=== PATIENT | female | born 1960 | race Caucasian/White ===

== ENCOUNTER 2016-09-01 12:30 | Inpatient (IN) | payer OTHER ==
[2016-08-31 14:10] VITALS: BMI 30.7
[~2016-09-01] VITALS: Ht 180.3 cm; Wt 109.3 kg
[2016-09-13 14:47] VITALS: BMI 31.7
[2016-09-14] VITALS (19 sets, daily range): BP systolic 109–135; BP diastolic 56–82; PULSE 60–86; RESP 12–28; Ht 180.3 cm; Wt 109.3 kg
--- NOTE | 2016-09-14 02:00 | PREOPHP ---
DATE OF ADMISSION: 09/01/2016 HISTORY OF PRESENT ILLNESS: Patient is approximately 55-year-old female who was originally seen for evaluation of low back pain with pain going through her lower extremities, mostly on the right side , but some on the left. She stated that her entire right leg felt numb. Patient was diagnosed with lumbar 4, lumbar 5 right disk herniation with mechanical low back pain, as well as instability betw een lumbar 4 and lumbar 5. Conservative management was offered to the patient in the form of physic al therapy, which did not improve patient's condition. Pain management did not improve, patient con tinued to complain of back pain with radiation to the lower extremities. Epidural injections were o ffered to the patient of the lumbar spine, which did not improve, patient wants something more defin itive to be done. According to the patient, the pain is getting worse and was having difficulty wit h ambulation. There is no bladder or bowel dysfunction. PAST MEDICAL HISTORY: Per chart. PAST SURGICAL HISTORY: Per chart. SOCIAL HISTORY: Per chart. ALLERGIES: PER CHART. MEDICATIONS TAKEN AT HOME: Per chart. FAMILY HISTORY: Unremarkable. REVIEW OF SYSTEMS: Additional 10-point review of systems conducted, pertinent positives stated in t he HPI, otherwise negative. PHYSICAL EXAMINATION: GENERAL: The patient is awake, alert and oriented, follows commands appropriately. HEENT: Head is atraumatic, normocephalic. Sclerae anicteric. EOMs intact. Pupils equal, reactive . bleeding. NECK: Supple. No thyromegaly. No JVD. CHEST: No accessory muscle use dyspnea, no tachypnea. CARDIOVASCULAR: No JVD, no pedal edema. ABDOMEN: Soft. NEUROLOGIC: Equal strength in upper extremities. Deltoids, biceps, triceps, wrist extensors, flexi on, as well as hand intrinsic and extrinsic muscles. Strength is equal. Sensation is intact throug hout lower extremity examination. Difficulty with sensation in the right lower extremity compared t o the left. Left thigh, patient has slowed sensation. Strength is about 4/5 in the right lower ext remity compared to 5/5 on the left one. Range of motion of the hips, knees and ankles is intact. IMAGING FINDINGS: MRI dated 07/28/2016 showed right-sided L4-5 disk herniation, severe degenerative disk disease and with end-plate abnormality. Patient also has evidence of instability between L4 a nd L5, and the facet joints are open as well. IMPRESSION: Patient shows clear evidence of a right-sided L4-5 disk herniation with severe degenera tive disk disease with end-plate abnormality, as well as instability between L4 and L5, as well as i nstability in the facet joints. Patient, unfortunately, has failed conservative management. RECOMMENDATION: Is for patient to undergo surgical intervention in the form of lumbar 4, lumbar 5 l aminectomy with interbody fusion and instrumentation with posterolateral pedicle screw instrumentati on. Unfortunately, patient has failed outpatient management, has failed the conservative management . The only option at this point is for surgical intervention. Surgical intervention was discussed with the patient. Patient has been cleared by the primary physician to undergo surgical interventio n. Laboratories were reviewed. Patient is stable to undergo through surgical intervention, there a fter patient will need admission to the hospital for further care and management. Dictated By: ELIANA ROBERTS/TEZ Conf#: [id number] DID#: [id number]
[2016-09-14] MEDS ORDERED: MELO7.5O PO (06:22)
[2016-09-14] MEDS ORDERED: ATOR20TA38 PO (06:22)
[2016-09-14] MEDS ORDERED: CHOL100062 PO (06:22)
[2016-09-14] MEDS ORDERED: ACET1TAB40 PO (06:22)
[2016-09-14] MEDS ORDERED: PREM3 PO (06:22)
[2016-09-14] MEDS ORDERED: GABA300C16 PO (06:22)
[2016-09-14] MEDS ORDERED: PROPOFOL 20 ML ONE (06:28)
[2016-09-14] MEDS ORDERED: GLYCOPYRROLATE 0.4 MG INJ ONE (06:28)
[2016-09-14] MEDS ORDERED: FENTAnyl 50 MCG/ML VIAL ONE (06:28)
[2016-09-14] MEDS ORDERED: LIDOCAINE 2% (SDV) 5 ML INJ ONE (06:28)
[2016-09-14] MEDS ORDERED: NEOSTIGMINE 3 MG/3 ML SYRINGE ONE (06:28)
[2016-09-14] MEDS ORDERED: MIDAZOLAM 1 MG/ML 2 ML INJ ONE (06:28)
[2016-09-14] MEDS ORDERED: ROCURONIUM 50 MG INJ ONE (06:28)
[2016-09-14] MEDS ORDERED: EPHEDrine SULFATE 50 MG/5 ML SYG ONE (06:29)
[2016-09-14] MEDS ORDERED: ONDANSETRON 4 MG INJ ONE (06:29)
[2016-09-14] MEDS ORDERED: SUCCINYLCHOLINE CHLORIDE 100 MG/5 ML SYG IV ONE (06:29)
[2016-09-14] MEDS ORDERED: DEXAMETHASONE 4 MG/ML 1 ML INJ ONE (06:29)
[2016-09-14] MEDS ORDERED: OXYCODONE/ACETAMINOPHEN (5/325) TAB PO PRN ×2 (06:30)
[2016-09-14] MEDS ORDERED: morphine (1 MG/ML) 10ML SYRINGE IV PRN ×3 (06:30)
[2016-09-14] MEDS ORDERED: EPHEDrine SULFATE 50 MG/5 ML SYG IV PRN (06:30)
[2016-09-14] MEDS ORDERED: ATROPINE 1 MG/10 ML SYRINGE IV PRN (06:30)
[2016-09-14] MEDS ORDERED: HYDROmorphONE (0.2 MG/ML) 10ML SYG IV PRN (06:30)
[2016-09-14] MEDS ORDERED: hydrALAzine 20 MG INJ IV PRN (06:30)
[2016-09-14] MEDS ORDERED: MEPERIDINE 25 MG INJ IV PRN (06:30)
[2016-09-14] MEDS ORDERED: FENTAnyl 50 MCG/ML VIAL IV PRN ×2 (06:30)
[2016-09-14] MEDS ORDERED: MIDAZOLAM 1 MG/ML 2 ML INJ IV PRN (06:30)
[2016-09-14] MEDS ORDERED: ONDANSETRON 4 MG INJ IV PRN (06:30)
[2016-09-14] MEDS ORDERED: DIPHENHYDRAMINE 50 MG INJ IV PRN (06:30)
[2016-09-14] MEDS ORDERED: LABETALOL HCL 20MG INJ IV PRN (06:30)
[2016-09-14] MEDS ORDERED: GELATIN SIZE 100 SPONGE ONE (07:01)
[2016-09-14] MEDS ORDERED: LIDOCAINE 0.5%/EPI (MDV) 50 ML INJ ONE (07:01)
[2016-09-14] MEDS ORDERED: THROMBIN 5000 UNIT VIAL ONE (07:01)
[2016-09-14] MEDS ORDERED: morphine 2 MG INJ IV PRN (07:30)
[2016-09-14] MEDS ORDERED: hydrALAzine 20 MG INJ ONE (07:53)
[2016-09-14] MEDS ORDERED: BUPIVACAINE 0.25%/EPI (SDV) 30 ML INJ INJ ONE (08:00)
[2016-09-14] MEDS ORDERED: GELATIN SIZE 100 SPONGE TOP ONE (08:00)
[2016-09-14] MEDS ORDERED: THROMBIN 5000 UNIT VIAL TOP ONE ×2 (08:00)
[2016-09-14] MEDS ORDERED: POLYMYXIN/BACITRACIN 1L IRRIG IRR ONE (08:00)
[2016-09-14] MEDS ORDERED: LIDOCAINE 0.5%/EPI (MDV) 50 ML INJ INJ ONE (08:00)
[2016-09-14] MEDS ORDERED: LABETALOL HCL 20MG INJ ONE (08:47)
[2016-09-14] MEDS ORDERED: HYDROmorphONE 0.2 MG/ML PCA ONE (10:35)
[2016-09-14] MEDS: HYDROmorphONE (0.2 MG/ML) 10ML SYG IV PRN ×6 (10:37→11:19)
[2016-09-14] MEDS: HYDROmorphONE 0.2 MG/ML PCA IV SCH ×2 (10:39→17:26)
[2016-09-14] MEDS: DEXTROSE 5%-LR 1,000 ML IV SCH (11:47)
[2016-09-14] MEDS ORDERED: POLYMYXIN/BACITRACIN 1L IRRIG ONE (12:03)
[2016-09-14 12:36] LABS: ADD UMIC YES; URINE BILIRUBIN (Dip) NEGATIVE (NEGATIVE); URINE BLOOD (Dip) 3+ (NEGATIVE); URINE COLOR LT. YELLOW (YELLOW); URINE GLUCOSE (Dip) NEGATIVE (NEGATIVE); URINE KETONES (Dip) NEGATIVE (NEGATIVE); URINE LEUKOCYTE ESTERASE (Dip) NEGATIVE (NEGATIVE); URINE NITRITE (Dip) NEGATIVE (NEGATIVE); URINE TOTAL PROTEIN (Dip) TRACE (NEGATIVE); URINE UROBILINOGEN (Dip) 0.2 E.U./dL (0.1-1.0)
[2016-09-14 12:49] LABS: BACTERIA,URINE FEW; SQUAMOUS EPITHELIAL CELL,UR FEW
[2016-09-14] MEDS: CEFAZOLIN 1 GM/50 ML (PMX) 50 ML IVPB SCH ×2 (13:34→21:35)
--- NOTE | 2016-09-14 14:16 | RADRPT ---
PROCEDURE: Intraoperative fluoroscopy. CLINICAL INDICATION: Intraoperative fluoroscopy during lumbar fusion. TECHNIQUE: 4 spot intraoperative fluoroscopic images were provided. The images were reviewed on a high-resolution PACS workstation. COMPARISON: None available FINDINGS: Multiple spot intraoperative fluoroscopic views were provided during lumbar fusion. The images demo nstrate additional metallic probe at the L4-5 level, with subsequent placement of paired pedicle scr ews and disc-spacer at L4-5.. The total fluoroscopy time was 26.2 seconds. IMPRESSION: 1. Multiple spot intraoperative fluoroscopic views during lumbar fusion were provided. 2. Please see operative report of the same day for further information. RPTAT: HGAS .Con Mccoy MD, Date Time Electronically viewed and signed by .Con Mccoy MD, MD on 09/14/2016 14:15 .S/
--- NOTE | 2016-09-14 16:57 | HP ---
DATE OF ADMISSION: 09/14/2016 CHIEF COMPLAINT: Lower back pain. 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 The patient also report ed mild right leg numbness. The patient underwent MRI back in 07/2016 which revealed right-sided L4 -L5 disk herniation, severe degenerative disk disease with end plate abnormality. The patient was s een by Dr. Mohr as an outpatient. The patient was brought in to hospital today and underwent L4- L5 laminectomy. The patient prior to surgery was treated with outpatient conservative treatment. T he patient postoperatively had significant pain and is being admitted for further evaluation and man agement. The patient denies any chest pain, no reported shortness of breath, no history of hyperten storm, diabetes or CHF. No history of CVA. No reported abdominal pain. No reported recent fever or chills. No reported urinary or bowel incontinence prior to surgery. The patient was able to ambul ate without any assistance prior to surgery. PAST MEDICAL HISTORY: As stated above. PAST SURGICAL HISTORY: The patient is status post left total knee replacement, left hip replacement and right hip replacement x2 and subsequently underwent 2 revision surgeries. ALLERGIES: NONE. SOCIAL HISTORY: Ex-smoker, quit back in June 2016. FAMILY HISTORY: Noncontributory. PHYSICAL EXAMINATION: GENERAL: The patient is conscious, awake, alert, fairly oriented. VITAL SIGNS: Temperature 97.5, pulse 60, respirations 16, blood pressure 115/63, O2 saturation 98% on nasal cannula. HEENT: Conjunctivae and lids normal. Oropharynx clear. NECK: Supple. No mass, no thyromegaly. CHEST: Fairly clear. CARDIOVASCULAR: S1, S2 normal, no murmur. ABDOMEN: Soft, nondistended, nontender. EXTREMITIES: No leg edema. Pedal pulses palpable. SKIN: Without acute rash. NEUROLOGIC: The patient is awake, alert, fairly oriented. Detailed neurological examination was no t possible due to patient's recent surgery. LABORATORY DATA: Revealed WBC 9.2, hemoglobin 13.6, platelet 371. Sodium 139, potassium 4.6, BUN 1 6, creatinine 0.6. Liver enzymes normal. Coagulation profile normal. EKG revealed normal sinus rh ythm, no ST and T changes. Chest x-ray unremarkable. IMPRESSION: 1. Right sided L4-L5 disk herniation with severe degenerative disk disease status post L4-L5 dieudonne ctomy. 2. Dyslipidemia. PLAN: The patient admitted on medical floor after surgery. Patient will be given IV fluids and IV cefazolin as per protocol. Patient will be also given Tylenol, Percocet and IV morphine for pain co ntrol, depending upon the severity. Will resume Lipitor, gabapentin and Prempro. Further recommend ations will depend on the patient's hospital course. Dictated By: ANGELIA MCHUGH/TEZ Conf#: [id number] DID#: [id number]
[2016-09-14] MEDS: ONDANSETRON 4 MG INJ IV PRN (20:09)
[2016-09-14] MEDS: ATORVASTATIN 20 MG TAB PO SCH (20:09)
[2016-09-14] MEDS: GABAPENTIN 300 MG CAP PO SCH (20:09)
[2016-09-14] MEDS ORDERED: ZOLPIDEM 5 MG TAB PO PRN (21:30)
[2016-09-15] MEDS: DEXTROSE 5%-LR 1,000 ML IV SCH ×2 (00:40→05:11)
[2016-09-15 04:43] LABS: ADD SCAN DIFF NO
[2016-09-15 04:52] LABS: BASOPHILS % 0.2 % (0.0-2.0); HEMATOCRIT 31.9 % (37.0-47.0); HEMOGLOBIN 10.5 g/dl (12.0-16.0); LYMPHOCYTES # 1.4 10^3/ul (0.8-2.9); LYMPHOCYTES % 11.3 % (15.0-51.0); MEAN CORPUSCULAR HEMOGLOBIN 29.7 pg (29.0-33.0); MEAN CORPUSCULAR HGB CONC 32.9 g/dl (32.0-37.0); MEAN CORPUSCULAR VOLUME 90.1 fl (82.0-101.0); MEAN PLATELET VOLUME 9.4 fl (7.4-10.4); MONOCYTE # 0.6 10^3/ul (0.3-0.9); MONOCYTES % 4.6 % (0.0-11.0); NEUTROPHIL # 10.1 10^3/ul (1.6-7.5); NEUTROPHILS % 83.4 % (39.0-77.0); PLATELET COUNT 305 10^3/UL (140-415); RED BLOOD COUNT 3.54 10^6/ul (4.20-5.40); RED CELL DISTRIBUTION WIDTH 13.4 % (11.5-14.5); WHITE BLOOD COUNT 12.1 10^3/ul (4.8-10.8)
[2016-09-15] MEDS: CEFAZOLIN 1 GM/50 ML (PMX) 50 ML IVPB SCH ×2 (05:11→13:23)
[2016-09-15 05:19] VITALS: BP 123/57; PULSE 60; RESP 18
[2016-09-15 05:22] LABS: POTASSIUM 4.3 mmol/L (3.5-5.1)
[2016-09-15 05:24] LABS: CREATININE 0.67 mg/dl (0.44-1.00)
[2016-09-15 05:25] LABS: CALCIUM 8.9 mg/dl (8.4-10.2)
[2016-09-15 08:00] VITALS: BP 106/56; RESP 20
[2016-09-15] MEDS: GABAPENTIN 300 MG CAP PO SCH ×3 (08:54→20:25)
[2016-09-15] MEDS: ESTROGENS CONJUGATED 0.3 MG TAB PO SCH (08:54)
[2016-09-15] MEDS ORDERED: ERGOCALCIFEROL 50,000 UNIT CAP PO ONE (09:00)
--- NOTE | 2016-09-15 14:16 | CONS ---
Date/Time of Note Date/Time of Note DATE: 09/15/16 TIME: 14:14 Assessment/Plan Assessment/Plan Additional Assessment/Plan seen/examined awake/alert/follows/moves all/numbness right lower extremity l4-5 lami with fusion drain intact, strill draining pt/ot will dc drain dennis Consultation Date/Type/Reason Admit Date/Time September 14, 2016 at 05:27 Initial Consult Date Exam/Review of Systems Vital Signs Vitals Vital Signs Date Time Temp Pulse Resp B/P Pulse Ox O2 Delivery O2 Flow Rate FiO2 09/15/16 13:26 16 09/15/16 08:00 98.2 52 106/56 97 09/15/16 05:19 Nasal Cannula 2.0 Intake and Output 09/14/16 09/14/16 09/15/16 15:00 23:00 07:00 Intake Total 1650 ml 780 ml 1400 ml Output Total 430 ml 630 ml 2190 ml Balance 1220 ml 150 ml -790 ml Results Result Diagram: 09/15/16 0425 09/15/16 0425 Results 24 hrs Laboratory Tests Test 09/15/16 04:25 White Blood Count 12.1 H Red Blood Count 3.54 L Hemoglobin 10.5 L Hematocrit 31.9 L Mean Corpuscular Volume 90.1 Mean Corpuscular Hemoglobin 29.7 Mean Corpuscular Hemoglobin Concent 32.9 Red Cell Distribution Width 13.4 Platelet Count 305 Mean Platelet Volume 9.4 Neutrophils % 83.4 H Lymphocytes % 11.3 L Monocytes % 4.6 Eosinophils % 0.0 Basophils % 0.2 Nucleated Red Blood Cells % 0.0 Neutrophils # 10.1 H Lymphocytes # 1.4 Monocytes # 0.6 Eosinophils # 0.0 Basophils # 0.0 Nucleated Red Blood Cells # 0.0 Sodium Level 138 Potassium Level 4.3 Chloride Level 101 Carbon Dioxide Level 27 Anion Gap 14 Blood Urea Nitrogen 12 Creatinine 0.67 Glucose Level 118 Calcium Level 8.9 Medications Medications Current Medications Morphine Sulfate (morphine) 2 mg Q3H PRN IV severe pain; Start 09/14/16 at 07: 30 Acetaminophen/ Hydrocodone Bitart ([place] (10/325)) 1 tab Q4H PRN PO PAIN; Start 09/14/16 at 07:30 Ondansetron HCl (Zofran Inj) 4 mg Q6H PRN IV NAUSEA AND/OR VOMITING Last administered on 09/14/16 20:09; Admin Dose 4 MG; Start 09/14/16 at 07:30 Clonidine 0.1 mg 0.1 mg Q6H PRN PO sbp>160; Start 09/14/16 at 08:00 Dextrose/Lactated Ringer's (D5-Lr) 1,000 ml @ 60 mls/hr [id number] IV Last administered on 09/15/16 05:11; Admin Dose 60 MLS/HR; Start 09/14/16 at 08:00 Hydromorphone HCl (Dilaudid DIRECTOR EXPERIMENTAL MEDICINE) 0.4 MG DOSE 10 ... Q4PCA IV Last administered on 09/14/16 17:26; Admin Dose 6 MG; Start 09/14/16 at 11:00 Atorvastatin Calcium (Lipitor) 20 mg QHS PO Last administered on 09/14/16 20: 09; Admin Dose 20 MG; Start 09/14/16 at 21:00 Estrogens Conjugated (Premarin) 0.3 mg DAILY PO ; Start 09/15/16 at 09:00 Gabapentin (Neurontin) 300 mg TID PO Last administered on 09/15/16 13:23; Admin Dose 300 MG; Start 09/14/16 at 21:00 Cyclobenzaprine HCl (Flexeril) 10 mg TID PRN PO spasms; Start 09/14/16 at 21:30 MARNI MANRIQUEZ PA-C September 15, 2016 14:16
[2016-09-15] MEDS ORDERED: NALOXONE (0.4 MG/ML) INJ IV PRN (14:30)
--- NOTE | 2016-09-15 16:44 | PN ---
Date/Time of Note Date/Time of Note DATE: 09/15/16 TIME: 16:37 Assessment/Plan VTE Prophylaxis VTE Prophylaxis Intervention: other Lines/Catheters IV Catheter Type (from Nrsg): Peripheral IV Urinary Cath still in place: Yes Reason Cath still needed: urinary retention Assessment/Plan Assessment/Plan 1. Right sided L4-L5 disk herniation with severe degenerative disk disease status post L4-L5 laminectomy. - per neurosurgery -IV fluids and IV cefazolin as per protocol - Tylenol, Percocet and IV morphine for pain control, 2. Dyslipidemia. Further recommendations will depend on the patient's hospital course. Subjective 24 Hr Interval Summary Free Text/Dictation nad, lying inn bed, c/o right leg numbness, still moves Gigi LE, able to ambulate with PT-tolerated well, able to turn in bed, Eyes: no complaints ENT: no complaints Respiratory: no complaints Cardiovascular: no complaints Gastrointestinal: no complaints Genitourinary: no complaints Musculoskeletal: back pain Skin: no complaints Neurologic: no complaints Endocrine: no complaints Psychological: no complaints Immunologic: no complaints Exam/Review of Systems Vital Signs Vitals Vital Signs Date Time Temp Pulse Resp B/P Pulse Ox O2 Delivery O2 Flow Rate FiO2 09/15/16 13:26 16 09/15/16 08:00 98.2 52 106/56 97 09/15/16 05:19 Nasal Cannula 2.0 Intake and Output 09/14/16 09/14/16 09/15/16 15:00 23:00 07:00 Intake Total 1650 ml 780 ml 1400 ml Output Total 430 ml 630 ml 2190 ml Balance 1220 ml 150 ml -790 ml Exam Constitutional: alert, oriented, well developed Psych: nl mood/affect Eyes: EOMI, nl sclera ENMT: nl external ears & nose Neck: non-tender Respiratory: clear to auscultation Cardiovascular: nl pulses Gastrointestinal: non-tender, soft Musculoskeletal: nl extremities to inspection Extremities: normal pulses Neurological: nl mental status, nl speech, other (sp back surgery- DDI.Back belt/abdominal binder noted) Skin: nl turgor Lymph: nontender Results Result Diagram: 09/15/16 0425 09/15/16 0425 Results 24 hrs Laboratory Tests Test 09/15/16 04:25 White Blood Count 12.1 H Red Blood Count 3.54 L Hemoglobin 10.5 L Hematocrit 31.9 L Mean Corpuscular Volume 90.1 Mean Corpuscular Hemoglobin 29.7 Mean Corpuscular Hemoglobin Concent 32.9 Red Cell Distribution Width 13.4 Platelet Count 305 Mean Platelet Volume 9.4 Neutrophils % 83.4 H Lymphocytes % 11.3 L Monocytes % 4.6 Eosinophils % 0.0 Basophils % 0.2 Nucleated Red Blood Cells % 0.0 Neutrophils # 10.1 H Lymphocytes # 1.4 Monocytes # 0.6 Eosinophils # 0.0 Basophils # 0.0 Nucleated Red Blood Cells # 0.0 Sodium Level 138 Potassium Level 4.3 Chloride Level 101 Carbon Dioxide Level 27 Anion Gap 14 Blood Urea Nitrogen 12 Creatinine 0.67 Glucose Level 118 Calcium Level 8.9 Medications Medications Current Medications Morphine Sulfate (morphine) 2 mg Q3H PRN IV severe pain; Start 09/14/16 at 07: 30 Acetaminophen/ Hydrocodone Bitart ([place] (10/325)) 1 tab Q4H PRN PO PAIN; Start 09/14/16 at 07:30 Ondansetron HCl (Zofran Inj) 4 mg Q6H PRN IV NAUSEA AND/OR VOMITING Last administered on 09/14/16 20:09; Admin Dose 4 MG; Start 09/14/16 at 07:30 Clonidine 0.1 mg 0.1 mg Q6H PRN PO sbp>160; Start 09/14/16 at 08:00 Dextrose/Lactated Ringer's (D5-Lr) 1,000 ml @ 60 mls/hr [id number] IV Last administered on 09/15/16 05:11; Admin Dose 60 MLS/HR; Start 09/14/16 at 08:00 Hydromorphone HCl (Dilaudid LACE AND TEXTILES RESTORER) 0.4 MG DOSE 10 ... Q4PCA IV Last administered on 09/14/16 17:26; Admin Dose 6 MG; Start 09/14/16 at 11:00 Atorvastatin Calcium (Lipitor) 20 mg QHS PO Last administered on 09/14/16 20: 09; Admin Dose 20 MG; Start 09/14/16 at 21:00 Estrogens Conjugated (Premarin) 0.3 mg DAILY PO ; Start 09/15/16 at 09:00 Gabapentin (Neurontin) 300 mg TID PO Last administered on 09/15/16 13:23; Admin Dose 300 MG; Start 09/14/16 at 21:00 Cyclobenzaprine HCl (Flexeril) 10 mg TID PRN PO spasms; Start 09/14/16 at 21:30 Naloxone HCl (Narcan) 0.2 mg Q2M PRN IV DECREASED REPIRATORY RATE; Start at 14:30 JACOBO HUBBARD September 15, 2016 16:44
[2016-09-15] MEDS: HYDROmorphONE 0.2 MG/ML PCA IV SCH (17:14)
[2016-09-15 19:05] VITALS: BP 118/62; RESP 18
[2016-09-15] MEDS: ATORVASTATIN 20 MG TAB PO SCH (20:25)
[2016-09-15] MEDS: DOCUSATE SODIUM 100 MG CAP PO SCH (20:25)
[2016-09-16] MEDS: CYCLOBENZAPRINE 10 MG TAB PO PRN ×2 (04:40→13:09)
[2016-09-16 05:02] LABS: ADD SCAN DIFF NO
[2016-09-16 05:06] LABS: BASOPHIL # 0.1 10^3/ul (0.0-0.1); BASOPHILS % 0.7 % (0.0-2.0); EOSINOPHILS # 0.1 10^3/ul (0.0-0.5); EOSINOPHILS % 1.2 % (0.0-7.0); HEMATOCRIT 33.3 % (37.0-47.0); HEMOGLOBIN 10.4 g/dl (12.0-16.0); LYMPHOCYTES # 2.8 10^3/ul (0.8-2.9); LYMPHOCYTES % 26.7 % (15.0-51.0); MEAN CORPUSCULAR HEMOGLOBIN 29.1 pg (29.0-33.0); MEAN CORPUSCULAR HGB CONC 31.2 g/dl (32.0-37.0); MEAN PLATELET VOLUME 9.7 fl (7.4-10.4); MONOCYTE # 0.7 10^3/ul (0.3-0.9); MONOCYTES % 6.7 % (0.0-11.0); NEUTROPHIL # 6.8 10^3/ul (1.6-7.5); NEUTROPHILS % 64.4 % (39.0-77.0); PLATELET COUNT 279 10^3/UL (140-415); RED BLOOD COUNT 3.58 10^6/ul (4.20-5.40); RED CELL DISTRIBUTION WIDTH 13.7 % (11.5-14.5); WHITE BLOOD COUNT 10.6 10^3/ul (4.8-10.8)
[2016-09-16 05:38] LABS: CALCIUM 8.7 mg/dl (8.4-10.2); CREATININE 0.63 mg/dl (0.44-1.00); POTASSIUM 4.4 mmol/L (3.5-5.1)
[2016-09-16] MEDS: HYDROmorphONE 0.2 MG/ML PCA IV SCH (06:56)
[2016-09-16 08:35] VITALS: BP 109/58; RESP 18
--- NOTE | 2016-09-16 08:45 | CONS ---
DATE OF ADMISSION: 09/14/2016 DATE OF CONSULTATION: 09/14/2016 PREOPERATIVE DIAGNOSIS: L4-L5 grade I spondylosis stenosis, mechanical low back pain. POSTOPERATIVE DIAGNOSIS L4-L5 grade I spondylosis stenosis, mechanical low back pain. PROCEDURE: 1. L4-L5 posterolateral fusion, CPT 19255. 2. L4 bilateral laminectomy, medial facetectomy and foraminotomy, CPT 52855. 3. L5 bilateral laminectomy, medial facetectomy and foraminotomy, CPT 98066. 4. L4-L5 posterior segmental instrumentation utilizing Synthes pedicle screws, CPT 81567. 5. Placement of interbody fusion with allograft MTF bone at the level of L4-L5, CPT 66945. SURGEON: DAMPENER: Dr. Eliana Mohr DAMPENER: SRINIVAS Goddard COMPLICATIONS OF THE OPERATION: None. ANESTHESIA: General endotracheal. ESTIMATED BLOOD LOSS: Less than 200. NEEDLE COUNTS AND SPONGE COUNTS: Correct. SPECIMENS: Multiple fragments of the disk were sent to Pathology. INDICATIONS FOR THE OPERATION: Carolann Regan is well known to me. She has been complaining of low back pain and leg pain. She is 55. She has been seen in my office on multiple occasions. We will plan on proceeding with lumbar laminectomy, fusion and instrumentation at L4-L5 level. She has martínez re spondylosis and stenosis. Benefits and risks of the operation including anesthesia, infection, bl eeding, permanent neurological injury and were explained. The patient agreed to proceed with the operation and signed the consent. PROCEDURE IN DETAIL: The patient was placed in supine position. After adequate general endotrachea l anesthesia was obtained. Lumbar region was shaved, prepped and draped in normal sterile fashion a fter the patient was turned prone on vertical bolsters. Midline incision was made with a 10 blade a fter a timeout was called. The incision was carried out to the lamina of the L4-L5. Deep retractor s were placed in the transverse process of L4 and L5 was identified. There was severe stenosis at t he L4-L5 decompressive laminectomy was done with double action rongeur and Kerrison punches. The ne rve root of L4 and L5 was distally followed into neural foramen and decompressed. The disk space of L4-L5 at this time was ____ and then operative microscope magnification, I did a c omplete diskectomy at L4-L5 and placed interbody fusions that were 11 mm PLIF bones that were provid ed by MTF at the level of L4-L5, achieving stabilization of the anterior column of the lumbar spine. Following that I placed pedicle screws 6 x 40 mm at the level of L4 and L5 bilaterally in both pedi cles. A total of 4 screws were utilized with rods that were 55 mm long and a #6 Crosslink. Everyth ing was torqued tightened to specification and x-ray confirmed our position. Spinal monitoring show ed excellent signal, then all the bleeders over the dura was covered with Gelfoam and the bleeding s topped. Following this, the transverse process of L4 and L5 was completely decorticated and the bone that wa s harvested throughout the laminectomy was mixed with demineralized bone matrix at approximately 10 mL and was placed as an onlay graft achieving posterolateral fusion at the L4-L5 level. Following that, a medium size Hemovac drain was placed in the wound exiting from the skin through a separate stab incision and secured to the skin with sutures. Closure of the wound was done with #1 Vicryl for lumbodorsal fascia, 2-0 and 3-0 Vicryl for subcutaneous tissue and dermis with Steri-Stri ps for the skin. Patient tolerated the procedure well, was taken to postanesthesia recovery in stab le condition. Dictated By: ELIANA ROBERTS/TEZ Conf#: [id number] DID#: [id number]
[2016-09-16] MEDS: ESTROGENS CONJUGATED 0.3 MG TAB PO SCH (08:47)
[2016-09-16] MEDS: DOCUSATE SODIUM 100 MG CAP PO SCH ×2 (08:47→20:28)
[2016-09-16] MEDS: GABAPENTIN 300 MG CAP PO SCH ×3 (08:47→20:28)
[2016-09-16] MEDS: DEXTROSE 5%-LR 1,000 ML IV SCH (08:55)
[2016-09-16] MEDS: ONDANSETRON 4 MG INJ IV PRN (09:45)
[2016-09-16] MEDS ORDERED: KETOROLAC 30 MG INJ IV STA (14:50)
[2016-09-16] MEDS ORDERED: METOCLOPRAMIDE 10 MG INJ IV PRN (15:00)
--- NOTE | 2016-09-16 18:04 | PN ---
Date/Time of Note Date/Time of Note DATE: 09/16/16 TIME: 18:01 Assessment/Plan VTE Prophylaxis VTE Prophylaxis Intervention: SCD's Lines/Catheters IV Catheter Type (from Nrs): Peripheral IV Urinary Cath still in place: No Assessment/Plan Assessment/Plan 1. Right sided L4-L5 disk herniation with severe degenerative disk disease status post L4-L5 laminectomy. Continue [place] and morphine for pain. Continue physical therapy. Follow-up surgical recommendations. 2. Dyslipidemia. Continue statin. Further recommendations based on clinical course. Plan of care discussed with Dr. Lara. Subjective 24 Hr Interval Summary Free Text/Dictation Patient was able to sit up in the chair, got out of bed with physical therapy, patient is currently tired, and is back to bed. Deep Carpenter. Exam/Review of Systems Vital Signs Vitals Vital Signs Date Time Temp Pulse Resp B/P Pulse Ox O2 Delivery O2 Flow Rate FiO2 09/16/16 15:10 18 09/16/16 08:35 98.0 74 109/58 96 09/15/16 05:19 Nasal Cannula 2.0 Intake and Output 09/15/16 09/15/16 09/16/16 15:00 23:00 07:00 Intake Total 50 ml 1270 ml 900 ml Output Total 1580 ml 950 ml Balance 50 ml -310 ml -50 ml Exam Constitutional: alert, oriented Psych: no complaints Head: atraumatic, normocephalic Eyes: nl conjunctiva ENMT: nl external ears & nose Neck: non-tender, supple Respiratory: clear to auscultation, normal air movement Cardiovascular: nl pulses, regular rate and rhythm Gastrointestinal: non-tender, soft Musculoskeletal: other (Status post surgery) Neurological: SMEARER II-XII intact Skin: nl turgor Lymph: nl lymph nodes Results Result Diagram: 09/16/16 0430 09/16/16 0430 Results 24 hrs Laboratory Tests Test 09/16/16 04:30 White Blood Count 10.6 Red Blood Count 3.58 L Hemoglobin 10.4 L Hematocrit 33.3 L Mean Corpuscular Volume 93.0 Mean Corpuscular Hemoglobin 29.1 Mean Corpuscular Hemoglobin Concent 31.2 L Red Cell Distribution Width 13.7 Platelet Count 279 Mean Platelet Volume 9.7 Neutrophils % 64.4 Lymphocytes % 26.7 Monocytes % 6.7 Eosinophils % 1.2 Basophils % 0.7 Nucleated Red Blood Cells % 0.0 Neutrophils # 6.8 Lymphocytes # 2.8 Monocytes # 0.7 Eosinophils # 0.1 Basophils # 0.1 Nucleated Red Blood Cells # 0.0 Sodium Level 137 Potassium Level 4.4 Chloride Level 103 Carbon Dioxide Level 30 Anion Gap 8 Blood Urea Nitrogen 11 Creatinine 0.63 Glucose Level 99 Calcium Level 8.7 Medications Medications Current Medications Morphine Sulfate (morphine) 2 mg Q3H PRN IV severe pain; Start 09/14/16 at 07: 30 Acetaminophen/ Hydrocodone Bitart ([place] ()) 1 tab Q4H PRN PO PAIN; Start 09/14/16 at 07:30 Ondansetron HCl (Zofran Inj) 4 mg Q6H PRN IV NAUSEA AND/OR VOMITING Last administered on 09/16/16 09:45; Admin Dose 4 MG; Start 09/14/16 at 07:30 Clonidine 0.1 mg 0.1 mg Q6H PRN PO sbp>160; Start 09/14/16 at 08:00 Dextrose/Lactated Ringer's (D5-Lr) 1,000 ml @ 60 mls/hr [id number] IV Last administered on 09/16/16 08:55; Admin Dose 60 MLS/HR; Start 09/14/16 at 08:00 Hydromorphone HCl (Dilaudid UPHOLSTERY CUTTER) 0.4 MG DOSE 10 ... Q4PCA IV Last administered on 09/16/16 06:56; Admin Dose 6 MG; Start 09/14/16 at 11:00 Atorvastatin Calcium (Lipitor) 20 mg QHS PO Last administered on 09/15/16 20: 25; Admin Dose 20 MG; Start 09/14/16 at 21:00 Estrogens Conjugated (Premarin) 0.3 mg DAILY PO ; Start 09/15/16 at 09:00 Gabapentin (Neurontin) 300 mg TID PO Last administered on 09/16/16 13:09; Admin Dose 300 MG; Start 09/14/16 at 21:00 Cyclobenzaprine HCl (Flexeril) 10 mg TID PRN PO spasms Last administered on 13:09; Admin Dose 10 MG; Start 09/14/16 at 21:30 Naloxone HCl (Narcan) 0.2 mg Q2M PRN IV DECREASED REPIRATORY RATE; Start at 14:30 Docusate Sodium (Colace) 100 mg BID PO Last administered on 09/16/16 08:47; Admin Dose 100 MG; Start 09/15/16 at 21:00 Metoclopramide HCl (Reglan) 10 mg Q6H PRN IV NAUSEA Last administered on 15:01; Admin Dose 10 MG; Start 09/16/16 at 15:00 JOSEPH ARMENDARIZ September 16, 2016 18:04
--- NOTE | 2016-09-16 18:12 | CONS ---
Date/Time of Note Date/Time of Note DATE: 09/16/16 TIME: 18:11 Assessment/Plan Assessment/Plan Additional Assessment/Plan seen/examined awake/alert/follows/moves all hemovac with 40 cc collection cont pt/ot pending lumbar corsett dc hemovac may go home if pain is tolerable Consultation Date/Type/Reason Admit Date/Time September 14, 2016 at 05:27 Exam/Review of Systems Vital Signs Vitals Vital Signs Date Time Temp Pulse Resp B/P Pulse Ox O2 Delivery O2 Flow Rate FiO2 09/16/16 15:10 18 09/16/16 08:35 98.0 74 109/58 96 09/15/16 05:19 Nasal Cannula 2.0 Intake and Output 09/15/16 09/15/16 09/16/16 15:00 23:00 07:00 Intake Total 50 ml 1270 ml 900 ml Output Total 1580 ml 950 ml Balance 50 ml -310 ml -50 ml Results Result Diagram: 09/16/16 0430 09/16/16 0430 Results 24 hrs Laboratory Tests Test 09/16/16 04:30 White Blood Count 10.6 Red Blood Count 3.58 L Hemoglobin 10.4 L Hematocrit 33.3 L Mean Corpuscular Volume 93.0 Mean Corpuscular Hemoglobin 29.1 Mean Corpuscular Hemoglobin Concent 31.2 L Red Cell Distribution Width 13.7 Platelet Count 279 Mean Platelet Volume 9.7 Neutrophils % 64.4 Lymphocytes % 26.7 Monocytes % 6.7 Eosinophils % 1.2 Basophils % 0.7 Nucleated Red Blood Cells % 0.0 Neutrophils # 6.8 Lymphocytes # 2.8 Monocytes # 0.7 Eosinophils # 0.1 Basophils # 0.1 Nucleated Red Blood Cells # 0.0 Sodium Level 137 Potassium Level 4.4 Chloride Level 103 Carbon Dioxide Level 30 Anion Gap 8 Blood Urea Nitrogen 11 Creatinine 0.63 Glucose Level 99 Calcium Level 8.7 Medications Medications Current Medications Morphine Sulfate (morphine) 2 mg Q3H PRN IV severe pain; Start 09/14/16 at 07: 30 Acetaminophen/ Hydrocodone Bitart ([place] (10/325)) 1 tab Q4H PRN PO PAIN; Start 09/14/16 at 07:30 Ondansetron HCl (Zofran Inj) 4 mg Q6H PRN IV NAUSEA AND/OR VOMITING Last administered on 09/16/16 09:45; Admin Dose 4 MG; Start 09/14/16 at 07:30 Clonidine 0.1 mg 0.1 mg Q6H PRN PO sbp>160; Start 09/14/16 at 08:00 Dextrose/Lactated Ringer's (D5-Lr) 1,000 ml @ 60 mls/hr [id number] IV Last administered on 09/16/16 08:55; Admin Dose 60 MLS/HR; Start 09/14/16 at 08:00 Hydromorphone HCl (Dilaudid DRONE OPERATOR) 0.4 MG DOSE 10 ... Q4PCA IV Last administered on 09/16/16 06:56; Admin Dose 6 MG; Start 09/14/16 at 11:00 Atorvastatin Calcium (Lipitor) 20 mg QHS PO Last administered on 09/15/16 20: 25; Admin Dose 20 MG; Start 09/14/16 at 21:00 Estrogens Conjugated (Premarin) 0.3 mg DAILY PO ; Start 09/15/16 at 09:00 Gabapentin (Neurontin) 300 mg TID PO Last administered on 09/16/16 13:09; Admin Dose 300 MG; Start 09/14/16 at 21:00 Cyclobenzaprine HCl (Flexeril) 10 mg TID PRN PO spasms Last administered on 13:09; Admin Dose 10 MG; Start 09/14/16 at 21:30 Naloxone HCl (Narcan) 0.2 mg Q2M PRN IV DECREASED REPIRATORY RATE; Start at 14:30 Docusate Sodium (Colace) 100 mg BID PO Last administered on 09/16/16 08:47; Admin Dose 100 MG; Start 09/15/16 at 21:00 Metoclopramide HCl (Reglan) 10 mg Q6H PRN IV NAUSEA Last administered on 15:01; Admin Dose 10 MG; Start 09/16/16 at 15:00 MARNI MANRIQUEZ PA-C September 16, 2016 18:12
[2016-09-16] MEDS: HYDROCODONE/APAP (10/325) TAB PO PRN ×2 (18:23→22:35)
[2016-09-16 19:56] VITALS: BP 111/65; RESP 20
[2016-09-16] MEDS: ATORVASTATIN 20 MG TAB PO SCH (20:28)
[2016-09-17] MEDS: HYDROCODONE/APAP (10/325) TAB PO PRN ×6 (02:34→23:32)
[2016-09-17 05:12] LABS: ADD SCAN DIFF NO
[2016-09-17 05:25] LABS: BASOPHIL # 0.1 10^3/ul (0.0-0.1); BASOPHILS % 0.8 % (0.0-2.0); EOSINOPHILS # 0.3 10^3/ul (0.0-0.5); HEMATOCRIT 31.6 % (37.0-47.0); LYMPHOCYTES # 2.4 10^3/ul (0.8-2.9); LYMPHOCYTES % 26.4 % (15.0-51.0); MEAN CORPUSCULAR HEMOGLOBIN 29.2 pg (29.0-33.0); MEAN CORPUSCULAR HGB CONC 31.6 g/dl (32.0-37.0); MEAN CORPUSCULAR VOLUME 92.1 fl (82.0-101.0); MEAN PLATELET VOLUME 9.6 fl (7.4-10.4); MONOCYTE # 0.6 10^3/ul (0.3-0.9); MONOCYTES % 6.4 % (0.0-11.0); NEUTROPHIL # 5.6 10^3/ul (1.6-7.5); PLATELET COUNT 264 10^3/UL (140-415); RED BLOOD COUNT 3.43 10^6/ul (4.20-5.40); RED CELL DISTRIBUTION WIDTH 13.6 % (11.5-14.5); WHITE BLOOD COUNT 8.9 10^3/ul (4.8-10.8)
[2016-09-17 05:56] LABS: POTASSIUM 4.1 mmol/L (3.5-5.1)
[2016-09-17 05:59] LABS: CALCIUM 8.6 mg/dl (8.4-10.2); CREATININE 0.62 mg/dl (0.44-1.00)
[2016-09-17 07:30] VITALS: BP 105/56; RESP 15
[2016-09-17] MEDS: ESTROGENS CONJUGATED 0.3 MG TAB PO SCH (08:48)
[2016-09-17] MEDS: GABAPENTIN 300 MG CAP PO SCH ×3 (08:48→20:19)
[2016-09-17] MEDS: DOCUSATE SODIUM 100 MG CAP PO SCH ×2 (08:48→20:18)
--- NOTE | 2016-09-17 11:10 | PN ---
Date/Time of Note Date/Time of Note DATE: 09/17/16 TIME: 11:09 Assessment/Plan VTE Prophylaxis VTE Prophylaxis Intervention: other Lines/Catheters IV Catheter Type (from Nrs): Saline Lock Urinary Cath still in place: No Assessment/Plan Chief Complaint/Hosp Course 1. Right sided L4-L5 disk herniation with severe degenerative disk disease status post L4-L5 laminectomy. Continue [place] and morphine for pain. Continue physical therapy. Follow-up surgical recommendations. 2. Dyslipidemia. Continue statin. Problems: Subjective 24 Hr Interval Summary Free Text/Dictation Patient complain of significant back pain Exam/Review of Systems Vital Signs Vitals Vital Signs Date Time Temp Pulse Resp B/P Pulse Ox O2 Delivery O2 Flow Rate FiO2 09/17/16 07:30 98.5 63 15 105/56 100 09/15/16 05:19 Nasal Cannula 2.0 Intake and Output 09/16/16 09/16/16 09/17/16 15:00 23:00 07:00 Intake Total 750 ml 950 ml Output Total 240 ml 900 ml Balance 510 ml 50 ml Exam Constitutional: well developed Head: atraumatic, normocephalic Neck: supple Respiratory: clear to auscultation Cardiovascular: regular rate and rhythm Gastrointestinal: non-tender, soft Extremities: normal pulses Results Result Diagram: 09/17/16 0431 09/17/16 0431 Results 24 hrs Laboratory Tests Test 09/17/16 04:31 White Blood Count 8.9 Red Blood Count 3.43 L Hemoglobin 10.0 L Hematocrit 31.6 L Mean Corpuscular Volume 92.1 Mean Corpuscular Hemoglobin 29.2 Mean Corpuscular Hemoglobin Concent 31.6 L Red Cell Distribution Width 13.6 Platelet Count 264 Mean Platelet Volume 9.6 Neutrophils % 63.0 Lymphocytes % 26.4 Monocytes % 6.4 Eosinophils % 3.0 Basophils % 0.8 Nucleated Red Blood Cells % 0.0 Neutrophils # 5.6 Lymphocytes # 2.4 Monocytes # 0.6 Eosinophils # 0.3 Basophils # 0.1 Nucleated Red Blood Cells # 0.0 Sodium Level 136 Potassium Level 4.1 Chloride Level 100 Carbon Dioxide Level 30 Anion Gap 10 Blood Urea Nitrogen 11 Creatinine 0.62 Glucose Level 91 Calcium Level 8.6 Medications Medications Current Medications Morphine Sulfate (morphine) 2 mg Q3H PRN IV severe pain; Start 09/14/16 at 07: 30 Acetaminophen/ Hydrocodone Bitart ([place] (10/325)) 1 tab Q4H PRN PO PAIN Last administered on 09/17/16 10:48; Admin Dose 1 TAB; Start 09/14/16 at 07:30 Ondansetron HCl (Zofran Inj) 4 mg Q6H PRN IV NAUSEA AND/OR VOMITING Last administered on 09/16/16 09:45; Admin Dose 4 MG; Start 09/14/16 at 07:30 Clonidine ([place]ap[place]) 0.1 mg Q6H PRN PO sbp>160; Start 09/14/16 at 08:00 Hydromorphone HCl (Dilaudid ROLLER COASTER DESIGNER) 0.4 MG DOSE 10 ... Q4PCA IV Last administered on 09/16/16 06:56; Admin Dose 6 MG; Start 09/14/16 at 11:00 Atorvastatin Calcium (Lipitor) 20 mg QHS PO Last administered on 09/16/16 20: 28; Admin Dose 20 MG; Start 09/14/16 at 21:00 Estrogens Conjugated (Premarin) 0.3 mg DAILY PO Last administered on 09/17/16 08:48; Admin Dose 0.3 MG; Start 09/15/16 at 09:00 Gabapentin (Neurontin) 300 mg TID PO Last administered on 09/17/16 08:48; Admin Dose 300 MG; Start 09/14/16 at 21:00 Cyclobenzaprine HCl (Flexeril) 10 mg TID PRN PO spasms Last administered on 13:09; Admin Dose 10 MG; Start 09/14/16 at 21:30 Naloxone HCl (Narcan) 0.2 mg Q2M PRN IV DECREASED REPIRATORY RATE; Start at 14:30 Docusate Sodium (Colace) 100 mg BID PO Last administered on 09/17/16 08:48; Admin Dose 100 MG; Start 09/15/16 at 21:00 Metoclopramide HCl (Reglan) 10 mg Q6H PRN IV NAUSEA Last administered on 15:01; Admin Dose 10 MG; Start 09/16/16 at 15:00 MEG DENNY September 17, 2016 11:10
[2016-09-17] MEDS: CYCLOBENZAPRINE 10 MG TAB PO PRN (12:14)
[2016-09-17 19:48] VITALS: BP 102/62; RESP 18
[2016-09-17] MEDS: ATORVASTATIN 20 MG TAB PO SCH (20:18)
[2016-09-18] MEDS: HYDROCODONE/APAP (10/325) TAB PO PRN ×4 (03:34→15:56)
[2016-09-18] MEDS: ESTROGENS CONJUGATED 0.3 MG TAB PO SCH (07:43)
[2016-09-18] MEDS: DOCUSATE SODIUM 100 MG CAP PO SCH (07:43)
[2016-09-18] MEDS: GABAPENTIN 300 MG CAP PO SCH ×2 (07:43→11:56)
[2016-09-18 08:06] VITALS: BP 114/56; RESP 18
[2016-09-18] MEDS: CYCLOBENZAPRINE 10 MG TAB PO PRN ×2 (09:44→12:46)
--- NOTE | 2016-09-18 11:38 | DS ---
Date/Time of Note Date/Time of Note DATE: 09/18/16 TIME: 11:37 Discharge Summary Admission/Discharge Info Admit Date/Time September 14, 2016 at 05:27 Discharge Date/Time 09/18/16 Final Diagnosis 1) back pain with spinal stenosis Patient Condition: Fair Consults neurosurgery Procedures laminectomy Hx of Present Illness Patient comes in with severe lower back pain found to be due to spinal stenosis. Patient underwent laminectomy. She tolerated the procedure fine. When the patient was deemed to be stable, she was sent home. Hospital Course 1. Right sided L4-L5 disk herniation with severe degenerative disk disease status post L4-L5 laminectomy. Continue [place] and morphine for pain. Continue physical therapy. Follow-up surgical recommendations. 2. Dyslipidemia. Continue statin. Home Meds Reported Medications Acetaminophen with Codeine (Acetaminophen-Cod #3 Tablet) 1 Each Tablet, 1 TAB PO Q6H, #7 TAB 09/14/16 Cholecalciferol* (Vitamin D3*) 1,000 Unit Tablet, 14278 UNIT PO TWICE A WEEK, TAB 09/14/16 Atorvastatin Calcium* (Atorvastatin Calcium*) 20 Mg Tablet, 20 MG PO QHS, #30 TAB 09/14/16 Gabapentin* (Gabapentin*) 300 Mg Capsule, 300 MG PO TID, #90 CAP 09/14/16 Meloxicam* (Meloxicam*) 7.5 Mg/5 Ml Oral.susp, 15 MG PO DAILY, #300 ML 09/14/16 Estrogens Conjugated* (Premarin*) 0.3 Mg Tablet, 0.3 MG PO DAILY, TAB 09/14/16 MEG DENNY September 18, 2016 11:38
--- NOTE | 2016-09-26 15:35 | OPR ---
DATE OF OPERATION: 09/14/2016 PREOPERATIVE DIAGNOSIS: L4-L5 grade I spondylosis stenosis, mechanical low back pain. POSTOPERATIVE DIAGNOSIS L4-L5 grade I spondylosis stenosis, mechanical low back pain. PROCEDURE: 1. L4-L5 posterolateral fusion, CPT 05614. 2. L4 bilateral laminectomy, medial facetectomy and foraminotomy, CPT 29073. 3. L5 bilateral laminectomy, medial facetectomy and foraminotomy, CPT 06881. 4. L4-L5 posterior segmental instrumentation utilizing Synthes pedicle screws, CPT 94658. 5. Placement of interbody fusion with allograft MTF bone at the level of L4-L5, CPT 93615. SURGEON: RESIDENT CARE PROVIDER: Dr. Eliana Mohr RESIDENT CARE PROVIDER: SRINIVAS Goddard COMPLICATIONS OF THE OPERATION: None. ANESTHESIA: General endotracheal. ESTIMATED BLOOD LOSS: Less than 200. NEEDLE COUNTS AND SPONGE COUNTS: Correct. SPECIMENS: Multiple fragments of the disk were sent to Pathology. INDICATIONS FOR THE OPERATION: Carolann Regan is well known to me. She has been complaining of low back pain and leg pain. She is 55. She has been seen in my office on multiple occasions. We will plan on proceeding with lumbar laminectomy, fusion and instrumentation at L4-L5 level. She has martínez re spondylosis and stenosis. Benefits and risks of the operation including anesthesia, infection, bl eeding, permanent neurological injury and were explained. The patient agreed to proceed with the operation and signed the consent. PROCEDURE IN DETAIL: The patient was placed in supine position. After adequate general endotrachea l anesthesia was obtained. Lumbar region was shaved, prepped and draped in normal sterile fashion a fter the patient was turned prone on vertical bolsters. Midline incision was made with a 10 blade a fter a timeout was called. The incision was carried out to the lamina of the L4-L5. Deep retractor s were placed in the transverse process of L4 and L5 was identified. There was severe stenosis at t he L4-L5 decompressive laminectomy was done with double action rongeur and Kerrison punches. The ne rve root of L4 and L5 was distally followed into neural foramen and decompressed. The disk space of L4-L5 at this time was ____ and then operative microscope magnification, I did a c omplete diskectomy at L4-L5 and placed interbody fusions that were 11 mm PLIF bones that were provid ed by MARIELLA at the level of L4-L5, achieving stabilization of the anterior column of the lumbar spine. Following that I placed pedicle screws 6 x 40 mm at the level of L4 and L5 bilaterally in both pedi cles. A total of 4 screws were utilized with rods that were 55 mm long and a #6 Crosslink. Everyth ing was torqued tightened to specification and x-ray confirmed our position. Spinal monitoring show ed excellent signal, then all the bleeders over the dura was covered with Gelfoam and the bleeding s topped. Following this, the transverse process of L4 and L5 was completely decorticated and the bone that wa s harvested throughout the laminectomy was mixed with demineralized bone matrix at approximately 10 mL and was placed as an onlay graft achieving posterolateral fusion at the L4-L5 level. Following that, a medium size Hemovac drain was placed in the wound exiting from the skin through a separate stab incision and secured to the skin with sutures. Closure of the wound was done with #1 Vicryl for lumbodorsal fascia, 2-0 and 3-0 Vicryl for subcutaneous tissue and dermis with Steri-Stri ps for the skin. Patient tolerated the procedure well, was taken to postanesthesia recovery in stab le condition. Dictated By: ELIANA ROBERTS/TEZ Conf#: [id number] DID#: [id number]
== END 2016-09-18 16:20 | disposition home or self-care (01) | DRG 460 ==
LOC: EDUNIT# 13:00 → REC 09-14 05:27 → MS1 09-14 11:38
PROVIDERS: ADMIT Neurological Surgery; ATTEND Internal Medicine
PROC: 0ST20ZZ Resection of Lumbar Vertebral Disc, Open Approach (ICD-10-PCS; 2016-09-14)
PROC: 0SG0071 Fusion of Lumbar Vertebral Joint with Autologous Tissue Substitute, Posterior Approach, Posterior Column, Open Approach (ICD-10-PCS; 2016-09-14)
PROC: 0SG00KJ Fusion of Lumbar Vertebral Joint with Nonautologous Tissue Substitute, Posterior Approach, Anterior Column, Open Approach (ICD-10-PCS; principal; 2016-09-14 07:30)
DX: M47.816 Spondylosis without myelopathy or radiculopathy, lumbar region (principal); E78.5 Hyperlipidemia, unspecified; M48.06 Spinal stenosis, lumbar region; M51.26 Other intervertebral disc displacement, lumbar region; M51.36 Other intervertebral disc degeneration, lumbar region; Z96.652 Presence of left artificial knee joint; Z96.643 Presence of artificial hip joint, bilateral
CPT/HCPCS: 72100; 80048; 81001; 81003; 85025; 86850; 86900; 86901; 87086; 88304; 97116; 97162; 97530; C1713; C1762; J0360; J0690; J1100; J1170; J1885; J2175; J2250; J2270; J2405; J2710; J2765; J3010; J7121; J7999

== ENCOUNTER 2017-06-01 10:37 | Inpatient (IN) | END 2017-06-06 15:50 | disposition home or self-care (01) | DRG 471 ==